=== PATIENT | female | born 2000 | race Caucasian/White ===

== ENCOUNTER 2022-04-09 16:27 | Outpatient (CLI) | payer OTHER | END 2022-04-09 16:28 | disposition home or self-care (01) | LOC: RAD 16:27 | PROVIDERS: ATTEND Student in an Organized Health Care Education/Training Program | DX: S89.91XA Unspecified injury of right lower leg, initial encounter (principal) ==

== ENCOUNTER 2022-06-08 19:11 | Emergency (ER) | payer OTHER | END 2022-06-08 20:32 | disposition home or self-care (01) | LOC: ERS 19:11 | DX: T40.711A Poisoning by cannabis, accidental (unintentional), initial encounter (principal) | CPT/HCPCS: 99283 ==